=== PATIENT | male | born 1980 | race Caucasian/White ===

== ENCOUNTER 2017-10-11 14:51 | Emergency (ER) | payer MEDICAID, SELFPAY ==
[2017-10-11 14:52] VITALS: BP 150/105; PULSE 96; RESP 18; TEMP 36.6; O2SAT 100; BMI 23.7
--- NOTE | 2017-10-11 15:01 | EKG12_ITS ---
Test Reason : MHC Blood Pressure : / mmHG Vent. Rate : 090 BPM Atrial Rate : 090 BPM P-R Int : 140 ms QRS Dur : 084 ms QT Int : 344 ms P-R-T Axes : 065 071 060 degrees QTc Int : 420 ms Normal sinus rhythm Nonspecific T wave abnormality Abnormal ECG Confirmed by VALORIE WINN, GURWINDER ([id number]), food expeditor ERNESTO LOPEZ ([id number]) on 10/14/2017 11:24:20 AM Referred By: JUANIS Confirmed By:GURWINDER EUGENE MD
--- NOTE | 2017-10-11 15:25 | ED.VISSUMM ---
- ER Visit Summary Date of Service: 10/11/17 Chief Complaint: Depression History of Present Illness: The patient is a 37 M who is brought in by the physician office secretary's department. The patient was noted yesterday to be sitting on a metal chair in the pool of water holding electrical cord. There is his optical engineering manager who found him and he attempted to take him to the hospital but this patient jumped out of the vehicle and fled. He tells me that he went and bought meth. When he woke up this morning he realized that his life was a mass. He states that this is not the type of way he wants his children to see him. He has a 4-year-old biologic son and a 10-year-old stepson. He is in a six-year relationship. He states that he has used methamphetamines off and on for years. He will take months off and something will happen and he will end up using. 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 He states he last saw counselor 6-7 years ago when he was living in [place]. Patient was found this morning by a deputy general counsel and he cooperated with the deputy and came to the emergency department. However once here he has been resistant to psychiatric protocol. Eventually he agreed after discussion with the deputy. He states he does not wish to harm himself. Physical Examination: Afebrile vital signs are stable Gen: Well-nourished well-developed Head: Normocephalic atraumatic Eyes: Perrl EOMI ENT: TMs clear no rhinorrhea moist mucous membranes Neck: Supple no lymphadenopathy no JVD nontender CVS: Regular rate rhythm no murmurs normal S1-S2 Respiratory: No distress clear to auscultation bilaterally chest nontender Abdomen: Soft nontender nondistended normal bowel sounds no masses Back: Nontender Extremity: Nontender no edema Skin: Normal color no rash Neuro: alert orientated ?3 CN II-XII intact normal strength sensation reflexes gait cerebellar Psych: Patient is tearful. He speaks quietly. He speaks often in vague in his answers. He makes very little eye contact. Test Results: [] Emergency Department Course and Treatment: [] Impression: 1. Depression This note was generated with [employer] software. It may contain incorrect words, spelling, and punctuation that were not noted in review of the chart prior to signing ED Disposition - Plan for ED Patient: Chief Complaint: Suicidal Referrals: Care Physician,No Primary [Primary Care Provider] -
--- NOTE | 2017-10-11 15:35 | ED.DCSUM_ITS ---
- ER Visit Summary Date of Service: 10/11/17 Chief Complaint: Depression History of Present Illness: The patient is a 37 M who is brought in by the drywall mechanic's department. The patient was noted yesterday to be sitting on a metal chair in the pool of water holding electrical cord. There is his port cdl a driver who found him and he attempted to take him to the hospital but this patient jumped out of the vehicle and fled. He tells me that he went and bought meth. When he woke up this morning he realized that his life was a mass. He states that this is not the type of way he wants his children to see him. He has a 4-year- old biologic son and a 10-year-old stepson. He is in a six-year relationship. He states that he has used methamphetamines off and on for years. He will take months off and something will happen and he will end up using. 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 He states he last saw counselor 6-7 years ago when he was living in [place]. Patient was found this morning by a dipper fish and he cooperated with the deputy and came to the emergency department. However once here he has been resistant to psychiatric protocol. Eventually he agreed after discussion with the deputy. He states he does not wish to harm himself. Physical Examination: Afebrile vital signs are stable Gen: Well-nourished well-developed Head: Normocephalic atraumatic Eyes: Perrl EOMI ENT: TMs clear no rhinorrhea moist mucous membranes Neck: Supple no lymphadenopathy no JVD nontender CVS: Regular rate rhythm no murmurs normal S1-S2 Respiratory: No distress clear to auscultation bilaterally chest nontender Abdomen: Soft nontender nondistended normal bowel sounds no masses Back: Nontender Extremity: Nontender no edema Skin: Normal color no rash Neuro: alert orientated ?3 CN II-XII intact normal strength sensation reflexes gait cerebellar Psych: Patient is tearful. He speaks quietly. He speaks often in vague in his answers. He makes very little eye contact. Test Results: [] Emergency Department Course and Treatment: [] Impression: 1. Depression This note was generated with [employer] software. It may contain incorrect words, spelling, and punctuation that were not noted in review of the chart prior to signing ED Disposition - Plan for ED Patient: Chief Complaint: Suicidal Referrals: Care Physician,No Primary [Primary Care Provider] -
[2017-10-11 15:46] LABS: Absolute Lymphocyte Count 1.63 X10^3/ul (0.83-4.51); Absolute Neutrophil Count 5.5 X10^3/uL (2.0-7.7); Basophil# 0.02 X10^3/uL; Basophil% 0.3 % (0-1); Eosinophil# 0.05 X10^3/uL; Eosinophils% 0.6 % (0-5); Hematocrit 45.1 % (40-54); Hemoglobin 14.6 g/dl (13.0-16.5); Lymphocyte # 1.63 X10^3/ul (4.0); Lymphocyte % 21.1 % (19-41); Mean Corp Hgb Conc 32.4 g/gl (32-36); Mean Corpuscular Hgb 28.6 pg (27.0-32.0); Mean Corpuscular Volume 88.4 fL (80-94); Mean Platelet Vol. 9.4 fl (6.2-12.0); Monocyte# 0.52 X10^3/uL; Monocyte% 6.7 % (0-10); Neutrophil # 5.51 X10^3/uL (2.7-7.7); Neutrophil % 71.2 % (47-70); Platelet Count 239 K/mm3 (150-450); RBC Distribution Width CV 13.3 % (11.6-14.6); RBC Distribution Width SD 43.2 fl (35.1-43.9); White Blood Count 7.7 K/mm3 (4.4-11.0)
[2017-10-11 15:48] LABS: POSITIVE COUNT NO; POSITIVE DIFFERENTIAL NO; POSITIVE MORPHOLOGY NO
--- NOTE | 2017-10-11 16:25 | CHAPLAIN ---
Type of Pastoral Visit _x__ Initial Visit ___ Follow-up Visit ___ On-call Visit ___ General Patient Visit ___ Spiritual Assessment ___ Family Conference ___ Bereavement ___ Rapid Response ___ Code Blue _x__ Other (describe below) Pastoral Care Referral From _x__ Patient ___ Family _x__ Nurse ___ Physician ___ General Accountant ___ Nuclear Physician ___ Other (describe below) Sacrament/Intervention _x__ Active listening ___ Anointing ___ Congregational ___ Bereavement ___ Communion _x__ Amy exploration ___ _x__ Life review _x__ Prayer ___ Reconciliation ___ Sacrament of Sick _x__ Supportive presence ___ Wedding ___ Other (describe below) Pastoral Comments RN asked me to see this patient; pt had suicide plans yesterday but did not carry them out; offered presence and listening ear to pt; pt was tearful; he said that I don't want to kill myself but he explained that he was thrown out of the house by long time partner and I've lost my family; pt says all I want is my family back; patient takes blame for his situation; pt says he would do anything for my kids; pt describes his need to put his family first and not his work and I need to get them out of the trailer park; pt says that he has given up on God although I still believe He exists and I don't have hope anymore although he admitted that he hopes he can get his family back and things can get better; pt says that he has a place to stay and that he has a friend who is supportive; pt says that he has been in contact with his Significant Other; pt accepted a prayer; pt was calm at conclusion of this encounter; pt was actively texting on his phone throughout this visit
[2017-10-11 16:31] LABS: Alcohol, Blood (Medical)-Serum < 3.0 mg/dL
[2017-10-11 16:32] LABS: AST(SGOT) 13 U/L (15-37); Alanine Aminotransfer ALT/SGPT 27 U/L (16-61); Albumin, Serum 4.2 g/dL (3.2-5.0); Alkaline Phosphatase 119 U/L (45-117); Bilirubin, Direct 0.11 mg/dL (0.00-0.30); Globulin 3.5 g/dL (2.2-4.2); Protein, Total 7.7 g/dL (6.4-8.2)
[2017-10-11 16:34] LABS: Anion Gap 7 (5-15); BUN 14 mg/dL (7-18); BUN/Creat Ratio 12.5 RATIO (10-20); Calcium,Total 9.2 mg/dL (8.5-10.1); Chloride 103 mmol/L (98-107); Creatinine, Serum 1.12 mg/dL (0.70-1.30); EST Glomerular Filtration Rate 78 mL/min (>60); Est Glom Filt Rate - Afr Amer 94 mL/min (>60); Estimated Creatinine Clearance 100.07 ml/min; Glucose 95 mg/dL (70-110); Potassium 4.1 mmol/L (3.5-5.1); Sodium Level 139 mmol/L (136-145); Thyroid Stim Hormone (TSH) 1.09 uIU/mL (0.358-3.74)
[2017-10-11 16:35] LABS: Bacteria 0 SEEN /hpf (None Seen); Red Blood Cells-Urine 0 SEEN /hpf (0-5); Squamous Epithelial Cells - UA 0 SEEN /hpf (0-5); White Blood Cells 0 SEEN /hpf (0-5)
[2017-10-11 16:48] LABS: Color, Urine Yellow (Yellow); Glucose, Dipstick Normal (Normal); Ketone-Dipstick Negative (Negative); Leukocyte Esterase-Dipstick Negative /ul (Negative); Nitrite-Dipstick Negative (Negative); Occult Blood-Urine 10 /ul (Negative); Protein-Dipstick Negative (Negative); Urine Bilirubin Dipstick Negative (Negative); Urine Clarity Clear (Clear); Urine Urobilinogen Normal (Normal); Urine pH 6.5 (5.0 - 8.0)
[2017-10-11 16:55] LABS: Mucous, Urine 1+ /hpf (<or=2+)
[2017-10-11 17:11] VITALS: RESP 18
[2017-10-11 17:16] LABS: Amphetamine Urine VISTA POSITIVE (<1000 ng/mL); Barbiturate Urine VISTA NEGATIVE (< 200 ng/mL); Benzodiazepine Urine VISTA NEGATIVE (< 200 ng/mL); Cocaine Urine VISTA NEGATIVE (< 300 ng/mL); Ecstacy Urine VISTA POSITIVE (< 500 ng/mL); Methadone Urine VISTA NEGATIVE (< 300 ng/mL); PCP Urine VISTA NEGATIVE (< 25 ng/mL); THC Urine VISTA POSITIVE (< 50 ng/mL); Vista UDS pH Range 6
--- NOTE | 2017-10-11 18:06 | ED.RN ---
PER RAYMOND WITH CRISIS; YURI BE IN TO EVALUATE THE PT
[2017-10-11 21:30] VITALS: BP 144/109
[2017-10-11 22:28] VITALS: RESP 18
[2017-10-11 23:10] VITALS: RESP 18
[2017-10-12] VITALS (9 sets, daily range): BP systolic 130–143; BP diastolic 78–100; PULSE 16–99; RESP 12–18; TEMP 36.4; O2SAT 95–99
--- NOTE | 2017-10-12 07:18 | NURSING ---
CALLED [facility] FOR TRANSPORT, WILL BE AFTER NOON. CALLED [facility] FOR [facility]SP[facility], REFUSED FOR NOW. ASKED TO CALL BACK LATER
--- NOTE | 2017-10-12 07:46 | NURSING ---
CALLED [facility]. REFUSED BASED ON WEATHER
--- NOTE | 2017-10-12 09:27 | NURSING ---
[facility] CALLED AND SAID THEY COULD BE HERE IN 45 MIN FOR TRANSPORT
[2017-10-12] MEDS: Ibuprofen 600 MG Tablet PO (10:44)
== END 2017-10-12 10:50 ==
PROVIDERS: Emergency Provider Emergency Medicine
DX: F32.9 Major depressive disorder, single episode, unspecified (principal); R45.851 Suicidal ideations; Z72.0 Tobacco use
CPT/HCPCS: 80048; 80076; 80307; 80320; 81001; 84443; 84484; 85025; 93005; 99284; G0480

== ENCOUNTER 2018-02-02 16:03 | Emergency (ER) | payer MEDICAID, SELFPAY ==
[2018-02-02 16:04] VITALS: BP 153/110; PULSE 110; RESP 17; TEMP 37.1; O2SAT 97; BMI 22.4
--- NOTE | 2018-02-02 16:20 | RAD_ITS ---
STUDY: X-RAY - RIGHT FOOT CLINICAL: Male, 37 years old. Right foot and ankle pain for 2 days. TECHNIQUE: 3 view(s) of the foot. COMPARISON: None. FINDINGS: Normal talus, calcaneus, and tarsal bones. Normal visualized subtalar, talonavicular, calcaneocuboid, tarsal and tarsometatarsal articulations. Normal metatarsi. Normal metatarsophalangeal joint of the great toe. Normal tibial and fibular sesamoid bones. Normal interphalangeal joint of the great toe. Normal phalanges of the great toe. Normal second through fifth metatarsophalangeal joints. Normal interphalangeal joints and phalanges of the lesser toes. The soft tissue structures are unremarkable. RAD/Foot min 3 Views IMPRESSION: No significant abnormality identified. Electronically Signed: Hermelindo Mccray MD at 16:37 EDT , Service support ,
--- NOTE | 2018-02-02 16:41 | ED.VISSUMM ---
- ER Visit Summary Date of Service: 02/02/18 Chief Complaint: Right heel pain History of Present Illness: The patient is a 37 M who cannot remember his primary care physician's name. He reports that his right heel pain began approximately 4 days ago. He denies any trauma. He describes it as a sharp pain is 10 out of 10 severity. Is worsened by walking or touching it. Is not taking anything for pain. Physical Examination: Vitals: Stable. Afebrile. General: Well-nourished and well-developed. Head: Normocephalic atraumatic. Neck: Supple, no lymphadenopathy. No JVD. Nontender. Cardiovascular: Regular rate and rhythm. No murmurs. Respiratory: No respiratory distress. Clear to auscultation bilaterally. Abdominal: Soft, nontender, nondistended, normal bowel sounds. No guarding, rebound, or peritoneal signs. Back: Nontender. Extremities: Pain is localized to the insertion of his right Achilles tendon. There is minimal erythema and soft tissue swelling. However, this area is moderately tender to palpation. He has normal Bhagat test. 2+ dorsalis pedis pulse. Skin: Normal color, no rash. Neurologic: Alert and oriented ?3. Cranial nerves II through XII are intact. Normal strength and sensation. Psych: Normal affect. Test Results: X-ray is negative Emergency Department Course and Treatment: Patient was treated with naproxen. Treatment Plan: Patient will be discharged on naproxen. Instructed with Dr. Velázquez in 1 week if not improving. Return to the emergency department for any worsening symptoms. Disposition: To home in improved and stable condition. Impression: 1. Right Achilles tendinitis. This note was generated with [employer] dictation software. It may contain incorrect words, spelling, and punctuation that were not noted in review of the chart prior to signing ED Disposition - Plan for ED Patient: Disposition: Home or Assisted Living Chief Complaint: Lower Extremity Injury Instructions: Treating Tendonitis of the Foot Referrals: Lenin Velázquez DPM [STAFF PHYSICIAN] - 1 Week if not improving
[2018-02-02] MEDS: Naproxen 500 MG Tablet PO (17:10)
[2018-02-02 17:11] VITALS: PULSE 104; RESP 17; O2SAT 96
== END 2018-02-02 17:15 | disposition home or self-care (01) ==
LOC: ED 16:34
PROVIDERS: Emergency Provider Emergency Medicine
DX: M76.61 Achilles tendinitis, right leg (principal); F17.200 Nicotine dependence, unspecified, uncomplicated; F20.9 Schizophrenia, unspecified; F60.3 Borderline personality disorder
CPT/HCPCS: 73630; 99283

== ENCOUNTER 2018-02-03 00:29 | Emergency (ER) | payer MEDICAID, SELFPAY ==
[2018-02-03 00:30] VITALS: BP 195/168; PULSE 92; RESP 17; TEMP 36.6; O2SAT 97; BMI 24.3
[2018-02-03 00:32] VITALS: BP 147/99
--- NOTE | 2018-02-03 00:44 | ED.VISSUMM ---
- ER Visit Summary Date of Service: 02/03/18 Chief Complaint: Problem with head History of Present Illness: The patient is a 37 M presenting with auditory hallucinations. Patient states he has been out of his schizophrenia medication for the past month. He states the auditory hallucinations have worsened over the last several days. He states he is currently trying to get his children back and is depressed and is having difficulty coping. He states he feels like there is a tornado in his head. He denies visual hallucinations. Denies suicidal ideation. Denies headache or other symptoms. Physical Examination: Vitals are stable. Patient is afebrile. Alert no acute distress. HEENT exam is unremarkable. Neck is supple. Lungs are clear and equal bilaterally. Heart is regular rate and rhythm. Abdomen is soft nontender nondistended. Skin is warm and dry. No focal neurologic deficit. Auditory hallucinations, denies suicidal ideation Remainder of exam is unremarkable. Emergency Department Course and Treatment: CBC, chemistries unremarkable other than creatinine 1.37. Alcohol is negative. Tox is negative. Patient was seen by the counseling center in the emergency department. They feel he is safe for discharge home. He will follow closely with the counselor and they will work on getting him established with a psychiatrist. He will be given a two-week course of his medication that he has run out of, Invega. Advised to follow-up with the counseling center. Advised return to ED for worsening complaints. Disposition: Discharge home Impression: Auditory hallucinations, history of schizophrenia This note was generated with [employer] dictation software. It may contain incorrect words, spelling, and punctuation that were not noted in review of the chart prior to signing ED Disposition - Plan for ED Patient: Chief Complaint: Mental Health Instructions: ED Schizophrenia General Prescriptions: Paliperidone [Invega] 9 mg PO DAILY #14 tablet Referrals: Counseling,Center [GROUP OF PHYSICIANS] - Care Physician,No Primary [Primary Care Provider] -
[2018-02-03 01:07] LABS: Vista UDS pH Range 7
[2018-02-03 01:11] LABS: Absolute Lymphocyte Count 2.78 X10^3/ul (0.83-4.51); Absolute Neutrophil Count 3.9 X10^3/uL (2.0-7.7); Basophil# 0.03 X10^3/uL; Basophil% 0.4 % (0-1); Eosinophil# 0.16 X10^3/uL; Eosinophils% 2.1 % (0-5); Hematocrit 40.4 % (40-54); Hemoglobin 13.4 g/dl (13.0-16.5); Lymphocyte # 2.78 X10^3/ul (4.0); Lymphocyte % 36.2 % (19-41); Mean Corp Hgb Conc 33.2 g/gl (32-36); Mean Corpuscular Hgb 29.1 pg (27.0-32.0); Mean Corpuscular Volume 87.6 fL (80-94); Mean Platelet Vol. 9.7 fl (6.2-12.0); Monocyte# 0.82 X10^3/uL; Monocyte% 10.7 % (0-10); Neutrophil # 3.89 X10^3/uL (2.7-7.7); Neutrophil % 50.5 % (47-70); Platelet Count 231 K/mm3 (150-450); RBC Distribution Width CV 14.1 % (11.6-14.6); RBC Distribution Width SD 45.1 fl (35.1-43.9); Red Blood Count 4.61 M/mm3 (4.6-6.2); White Blood Count 7.7 K/mm3 (4.4-11.0)
[2018-02-03 01:12] LABS: Anion Gap 4 (5-15); BUN 24 mg/dL (7-18); BUN/Creat Ratio 17.5 RATIO (10-20); Calcium,Total 8.8 mg/dL (8.5-10.1); Chloride 104 mmol/L (98-107); Creatinine, Serum 1.37 mg/dL (0.70-1.30); EST Glomerular Filtration Rate 61 mL/min (>60); Est Glom Filt Rate - Afr Amer 74 mL/min (>60); Estimated Creatinine Clearance 81.81 ml/min; Glucose 104 mg/dL (74-106); Sodium Level 139 mmol/L (136-145)
[2018-02-03 01:17] LABS: POSITIVE COUNT NO; POSITIVE DIFFERENTIAL NO; POSITIVE MORPHOLOGY NO
[2018-02-03 01:19] LABS: Amphetamine Urine VISTA NEGATIVE (<1000 ng/mL); Barbiturate Urine VISTA NEGATIVE (< 200 ng/mL); Benzodiazepine Urine VISTA NEGATIVE (< 200 ng/mL); Cocaine Urine VISTA NEGATIVE (< 300 ng/mL); Ecstacy Urine VISTA NEGATIVE (< 500 ng/mL); Methadone Urine VISTA NEGATIVE (< 300 ng/mL); PCP Urine VISTA NEGATIVE (< 25 ng/mL); THC Urine VISTA NEGATIVE (< 50 ng/mL)
[2018-02-03 01:24] LABS: Alcohol, Blood (Medical)-Serum < 3.0 mg/dL
--- NOTE | 2018-02-03 02:03 | ED.DEP ---
ED Disposition - Plan for ED Patient: Chief Complaint: Mental Health Instructions: ED Schizophrenia General Prescriptions: Paliperidone [Invega] 9 mg PO DAILY #14 tablet Referrals: Care Physician,No Primary [Primary Care Provider] - Counseling,Center [GROUP OF PHYSICIANS] -
[2018-02-03 02:35] VITALS: PULSE 76; RESP 16; O2SAT 98
== END 2018-02-03 02:36 | disposition home or self-care (01) ==
LOC: ED 01:00
PROVIDERS: Emergency Provider Emergency Medicine
DX: R44.0 Auditory hallucinations (principal); F32.9 Major depressive disorder, single episode, unspecified; F41.9 Anxiety disorder, unspecified; I10 Essential (primary) hypertension; Z72.0 Tobacco use
CPT/HCPCS: 36415; 80048; 80307; 80320; 85025; 99284; G0480

== ENCOUNTER 2019-07-03 19:00 | Emergency (ER) | payer MEDICAID, SELFPAY ==
[2018-11-14 10:09] VITALS: BMI 22.3
[2019-07-03 19:01] VITALS: BP 158/99; PULSE 115; RESP 20; TEMP 36.9; O2SAT 99; BMI 25.0
--- NOTE | 2019-07-03 19:05 | RAD_ITS ---
STUDY: X-RAY - LEFT HAND REASON FOR EXAM: Male, 38 years old. Pain, stiffness TECHNIQUE: 3 view(s) of the hand. COMPARISON: None. FINDINGS: Normal radiocarpal articulation. Normal distal radioulnar joint. Normal visualized carpal bones. Normal carpal articulations Normal carpometacarpal articulation of the thumb. Normal second through fifth carpometacarpal joints. Normal metacarpi. Normal metacarpophalangeal joint of the thumb. Normal interphalangeal joint of the thumb. Normal proximal and distal phalanges of the thumb. Normal metacarpophalangeal joints of the second through fifth fingers. Normal proximal and distal interphalangeal joints of the second through fifth fingers. Normal phalanges of the second through fifth fingers. The soft tissue structures are unremarkable. RAD/Hand Min 3 Views IMPRESSION: Normal x-ray examination of the hand. Electronically Signed: Reza Lee MD at 19:27 EDT , Service support ,
--- NOTE | 2019-07-03 19:05 | RAD_ITS ---
STUDY: X-RAY - LEFT RADIUS AND ULNA REASON FOR EXAM: Male, 38 years old. Pain after fall TECHNIQUE: 2 view(s) of the forearm. COMPARISON: None. FINDINGS: There is no demonstrated soft tissue swelling. Normal visualized radius. Normal visualized ulna. RAD/Forearm 2 Views IMPRESSION: Normal x-ray examination of the radius and ulna. Electronically Signed: Reza Lee MD at 19:28 EDT , Service support ,
[2019-07-03 19:52] VITALS: RESP 16
--- NOTE | 2019-07-03 19:59 | ED.DCSUM_ITS ---
History of Present Illness Chief Complaint: Fall Informant: Patient Onset: Today Current Severity: Moderate Maximum Severity: Moderate Narrative: Patient presents after falling approximately 13 feet from a ladder. He states the ladder gave out and he fell to the ground. He landed on his left side. Is complaining of pain to his left forearm and hand. He is abrasions over his shins. He denies striking his head or loss of consciousness. He denies neck or back pain. He is also complaining of a rash that he had on his face for the past 2 days. He states he had a small pimple-like lesion just beneath the lower lip that he popped. He now has redness and burning sensation over his chin. Past Medical History - Allergies and Home Meds Allergies/Adverse Reactions: Allergies Penicillins Allergy (Verified 07/03/19 19:01) Hives propoxyphene napsylate [From Darvocet-N 100] Allergy (Verified 07/03/19 19:01) Unknown Sulfa (Sulfonamide Antibiotics) Adverse Reaction (Verified 07/03/19 19:01) Upset Stomach Primary Care Physician: Care Physician,No Primary [Primary Care Provider] - Prior records reviewed: Yes Past Medical History: - - Reviewed Surgical History: no surgical history Smoking Status: Current every day smoker Review of Systems General: Denies: Chills, Fever Eyes: Denies: Visual changes - bilaterally ENT: Denies: Bilateral ear pain, Sore throat Cardiovascular: Denies: Chest pain Respiratory: Denies: Dyspnea, Cough Gastrointestinal: Denies: Abdominal pain, Nausea, Vomiting Musculoskeletal: Reports: Extremity Pain. Denies: Neck pain, Back pain Skin: Reports: Abrasions Neurological: Denies: Parasthesia Hematologic: Denies: Easy bruising Physical Exam Vital Signs/Narrative: Vital Signs Temp Pulse Resp BP Pulse Ox 07/03/19 19:52 16 07/03/19 19:01 98.4 F 115 H 20 H 158/99 H 99 Inital Vital Signs reviewed: Yes General: Well nourished, Well developed Head: Normocephalic ENT: Moist mucous membranes Neck: Supple Cardiovascular: Regular rate, Regular rhythm Respiratory: No distress, CTA bilaterally, Chest nontender Abdomen: Soft, Nontender Extremities: Tenderness - Tenderness palpation over the forearm, wrist, and hand on the left. No evidence of compartment syndrome. He can flex and extend at the wrist. Multiple superficial abrasions are noted. Lower extremity examination reveals linear abrasions over his shins. No bony tenderness. He is able to ambulate without difficulty. Skin: - - Abrasions as noted above. Patient also has evidence of cellulitis over his chin. No focal abscess. Neurological: Alert, Oriented x3 Psychological: Normal affect Diagnostic/Tx/Re-eval Impressions Forearm X-Ray 07/03/19 19:05 IMPRESSION: Normal x-ray examination of the radius and ulna. Electronically Signed: Reza Lee MD at 19:28 EDT , Service support , Hand X-Ray 07/03/19 19:05 IMPRESSION: Normal x-ray examination of the hand. Electronically Signed: Reza Lee MD at 19:27 EDT , Service support , 07/03/19 19:05 Hand Min 3 Views [RAD] Stat Xray Forearm [Forearm 2 Views] [RAD] Stat - Medical Decision Making X-ray results are discussed with the patient. He will be given a Velcro wrist s plint for his left arm. He reports his tetanus is up-to-date. He is given naproxen to help with pain. He will be treated with doxycycline for his cellulitis. He will also be given Bactroban ointment. ED Disposition - Plan for ED Patient: Disposition: Home or Assisted Living Diagnosis: Fall, Left wrist sprain, Cellulitis Instructions: FALL, Mechanical, Wrist Sprain, CELLULITIS, Facial Prescriptions: Doxycycline 100 mg PO BID #20 capsule Naproxen [Naprosyn] 500 mg PO BID PRN PRN #20 tablet PRN Reason: Pain Score 1-10/10 Referrals: Nai Storm DO [STAFF PHYSICIAN] - As Needed
[2019-07-03] MEDS: Naproxen 500 MG Tablet PO (20:18)
[2019-07-03] MEDS: Doxycycline 100 MG CAPSULE PO (20:18)
[2019-07-03] MEDS: Mupirocin Ointment 22gm Tube 1 APPLIC TOPICAL (20:18)
[2019-07-03 20:19] VITALS: RESP 18
== END 2019-07-03 20:20 | disposition home or self-care (01) ==
LOC: ED 20:08
PROVIDERS: Emergency Provider Emergency Medicine
DX: S63.502A Unspecified sprain of left wrist, initial encounter (principal); W11.XXXA Fall on and from ladder, initial encounter; Y93.9 Activity, unspecified; Y92.9 Unspecified place or not applicable; Y99.9 Unspecified external cause status; L03.211 Cellulitis of face
CPT/HCPCS: 73090; 73130; 99284

== ENCOUNTER 2019-08-14 18:29 | Emergency (ER) | payer MEDICAID, SELFPAY ==
[2019-08-14] VITALS (7 sets, daily range): BP systolic 140–162; BP diastolic 107–111; PULSE 97–117; RESP 18–21; TEMP 36.1–36.6; O2SAT 98–100; BMI 24.7
--- NOTE | 2019-08-14 18:36 | ED.RN ---
RN CALLED FOR EKG, PULLED OLD EKGS FOR
--- NOTE | 2019-08-14 19:02 | EKG12_ITS ---
Test Reason : CP Blood Pressure : / mmHG Vent. Rate : 109 BPM Atrial Rate : 109 BPM P-R Int : 136 ms QRS Dur : 086 ms QT Int : 320 ms P-R-T Axes : 045 060 045 degrees QTc Int : 430 ms Sinus tachycardia Otherwise normal ECG Confirmed by VALORIE WINN, GURWINDER ([id number]), scientific editor BLAS MILLAN ([id number]) on 08/16/2019 12:59:16 PM Referred By: GERRI Confirmed By:GURWINDER EUGENE MD
--- NOTE | 2019-08-14 19:04 | ED.VIS.CHEST ---
History of Present Illness Chief Complaint: Chest Pain Informant: Patient Onset: Hours - 1-2 Activity at onset: - - standing at work, working the drive thru at [employer] Timing: Continuous Quality: Sharp, Stabbing - w/ mild discomfort in left forearm that is now resolved Location: Left Chest Current Severity: Mild Maximum Severity: Severe Worsened By: Breathing - earlier, when it was severe Relieved By: Nothing Associated Symptoms: Dyspnea, Cough - recent, 1-2 wks, mild, [employer], Lightheadedness - near-syncopal, Palpitations. Negative for: Nausea, Vomiting, Diaphoresis, Fever Narrative: Patient states he was standing at work suddenly had onset of the symptoms lateral left chest, it was pleuritic at the time, he states symptoms are much more mild now but he did feel lightheaded and near syncopal. Denies any leg pain or swelling. No history of pulmonary embolus but he did have a superficial venous thrombosis in his right upper extremity due to a broken off IV catheter remotely, he states he was treated with blood thinners for that but has been off of them for a long time and never had any other issues in that area. He denies any recent travel, hospitalization, or surgery. He denies IV drug use. - Past Medical History (1) Schizophrenia Status: Chronic (2) Hypertension Status: Chronic (3) Migraine Status: Chronic Past Medical History - Allergies and Home Meds Allergies/Adverse Reactions: Allergies Penicillins Allergy (Verified 08/14/19 18:31) Hives propoxyphene napsylate [From Darvocet-N 100] Allergy (Verified 08/14/19 18:31) Unknown Sulfa (Sulfonamide Antibiotics) Adverse Reaction (Verified 08/14/19 18:31) Upset Stomach Primary Care Physician: Guanakito Carrizales MD [STAFF PHYSICIAN] - 5-7 Days Surgical History: - - Left shoulder 2014 Smoking Status: Current every day smoker Drugs: Marijuana, - - History of remote methamphetamine abuse, none recently. Review of Systems General: Denies: Chills, Fever, Sweats Eyes: Denies: Visual changes - bilaterally, Diplopia ENT: Denies: Rhinorrhea, Sore throat Cardiovascular: Reports: Chest pain, Palpitations, Heart racing Respiratory: Reports: Dyspnea, Cough. Denies: Sputum, Dyspnea on exertion Gastrointestinal: Denies: Abdominal pain, Nausea, Vomiting, Diarrhea, Melena, Hematochezia Genitourinary: Denies: Dysuria, Hematuria, Frequency Musculoskeletal: Reports: Extremity Pain - Mild, left upper extremity, resolved. Denies: Neck pain, Back pain, Swelling Skin: Denies: Rash, Wounds Neurological: Denies: Headache, Weakness, Numbness Psych: Reports: Anxiety Physical Exam Vital Signs/Narrative: Vital Signs Temp Pulse Resp BP Pulse Ox 08/14/19 18:32 97.9 F 08/14/19 18:30 97 F L 117 H 18 160/107 H 100 Inital Vital Signs reviewed: Yes General: Well nourished, Well developed, No Acute Distress - Well-appearing. Patient texting on cell phone. Head: Normocephalic, Atraumatic Eyes: Perrl, EOMI ENT: Moist mucous membranes, No rhinorrhea Neck: Supple, Nontender, No lymphadenopathy, No JVD Cardiovascular: Regular rate, Regular rhythm, No murmurs, Normal S1, Normal S2, Tachycardia Respiratory: No distress, CTA bilaterally, Chest nontender Abdomen: Soft, Nontender, Nondistended, Normal bowel sounds Back: Nontender, Normal Inspection. Negative for: CVA tenderness Extremities: Nontender, No edema. Negative for: Calf Tenderness - Active Homans bilaterally. Skin: Normal color, No rash, No Trauma Neurological: Alert, Oriented x3, Cranial nerves II-XII grossly intact, Normal Strength, Normal Sensation Psychological: Normal affect, Normal Mood Diagnostic/Tx/Re-eval Impressions Chest X-Ray 08/14/19 19:05 IMPRESSION: No acute cardiopulmonary disease or major interval change. Electronically Signed: Josias Paredes DO at 19:20 EST Tel [phone], Service support , 08/14/19 19:05 Chest 1 View (Portable) [RAD] Stat Laboratory Results 08/14/19 08/14/19 08/14/19 18:35 18:35 18:35 WBC 10.5 RBC 5.33 Hgb 15.2 Hct 45.4 MCV 85.2 MCH 28.5 MCHC 33.5 RDW Std Deviation 40.2 RDW Coeff of Bin 13.0 Plt Count 298 MPV 10.3 Immature Gran % (Auto) 0.300 Neut % (Auto) 62.1 Lymph % (Auto) 29.0 [place] % (Auto) 7.2 Eos % (Auto) 1.1 Baso % (Auto) 0.3 Absolute Neuts (auto) 6.5 Absolute Lymphs (auto) 3.04 Nucleated RBC % 0 D-Dimer Quant (PE/DVT) 0.37 Sodium 139 Potassium 3.5 Chloride 107 Carbon Dioxide 25.0 Anion Gap 7 BUN 20 H Creatinine 1.30 Estim Creat Clear Calc 84.51 Est GFR (MDRD) Af Amer 78 Est GFR (MDRD) Non-Af 65 BUN/Creatinine Ratio 15.4 Glucose 92 Calcium 9.6 Troponin I < 0.015 - Rhythm Strip Rhythm Strip: Sinus Tach Rate: 109 Ectopy: None - EKG Initial EKG Interpretation: No Acute Injury Pattern, Sinus Tachycardia, - - no [id number] pattern Prior: Unchanged Treatment: Toradol IV Repeat Eval: Significant improvement - Medical Decision Making Work-up is unremarkable including d-dimer which is negative. Patient is feeling much better after Toradol. Only residual symptom is mild left-sided discomfort without radiation, no dyspnea or palpitations. His heart rate is down to the 90s in sinus rhythm. Patient is asking if this could have been anxiety. He states he has had attacks that came out of nowhere like this before. Certainly that is in the differential. If he continues to have symptoms, he was referred to cardiology as a Holter monitor may be the next step and diagnostics if he continues to have palpitations. He understands this and is comfortable with discharge/this plan. ED Disposition - Plan for ED Patient: Disposition: Home or Assisted Living Diagnosis: Left-sided chest pain, Palpitations Instructions: CHEST PAIN, Uncertain Cause, Palpitations Referrals: Guanakito Carrizales MD [STAFF PHYSICIAN] - 5-7 Days
--- NOTE | 2019-08-14 19:05 | RAD_ITS ---
STUDY: X-RAY CHEST REASON FOR EXAM: Male, 39 years old. Chest pain. TECHNIQUE: Single AP portable view of the chest. COMPARISON: May 25, 2017. FINDINGS: The lungs are hypoexpanded but unchanged from the prior study. There is no new mass or infiltrate. There is no demonstrated pleural abnormality. Normal size heart. Normal mediastinum and jimbo. Normal visualized pulmonary arteries. Normal visualized aortic arch and descending thoracic aorta. Normal visualized thoracic spine. Normal visualized ribs, clavicles, and shoulders. There is no demonstrated abnormality of the visualized soft tissue structures of the upper abdomen. RAD/Chest 1 View (Portable) IMPRESSION: No acute cardiopulmonary disease or major interval change. Electronically Signed: Josias Paredes DO at 19:20 EST Tel [phone], Service support ,
[2019-08-14] MEDS: Ketorolac 15 MG/ML Vial IV (19:13)
[2019-08-14 20:02] LABS: Anion Gap 7 (5-15); BUN 20 mg/dL (7-18); BUN/Creat Ratio 15.4 RATIO (10-20); Calcium,Total 9.6 mg/dL (8.5-10.1); Chloride 107 mmol/L (98-107); EST Glomerular Filtration Rate 65 mL/min (>60); Est Glom Filt Rate - Afr Amer 78 mL/min (>60); Estimated Creatinine Clearance 84.51 ml/min; Glucose 92 mg/dL (74-106); Potassium 3.5 mmol/L (3.5-5.1); Sodium Level 139 mmol/L (136-145)
[2019-08-14 20:11] LABS: Absolute Lymphocyte Count 3.04 X10^3/uL (0.83-4.51); Absolute Neutrophil Count 6.5 X10^3/uL (2.0-7.7); Basophil# 0.03 X10^3/uL; Basophil% 0.3 % (0-1); Eosinophil# 0.11 X10^3/uL; Eosinophils% 1.1 % (0-5); Hematocrit 45.4 % (40-54); Hemoglobin 15.2 g/dL (13.0-16.5); Lymphocyte # 3.04 X10^3/ul (4.0); Mean Corp Hgb Conc 33.5 g/dL (32-36); Mean Corpuscular Hgb 28.5 pg (27.0-32.0); Mean Corpuscular Volume 85.2 fL (80-94); Mean Platelet Vol. 10.3 fl (6.2-12.0); Monocyte# 0.75 X10^3/uL; Monocyte% 7.2 % (0-10); NRBC Flagged by Analyzer 0 % (0-5); Neutrophil # 6.51 X10^3/uL (2.7-7.7); Neutrophil % 62.1 % (47-70); Platelet Count 298 K/mm3 (150-450); RBC Distribution Width SD 40.2 fl (35.1-43.9); Red Blood Count 5.33 M/mm3 (4.6-6.2); White Blood Count 10.5 K/mm3 (4.4-11.0)
[2019-08-14 20:31] LABS: D-Dimer Quantitative (DVT/PE) 0.37 FEU/ug/m (0.27-0.49)
== END 2019-08-14 21:48 | disposition home or self-care (01) ==
PROVIDERS: Emergency Provider Emergency Medicine
DX: R07.89 Other chest pain (principal); R00.2 Palpitations; R06.00 Dyspnea, unspecified; R05 Cough; F41.9 Anxiety disorder, unspecified; F20.9 Schizophrenia, unspecified; I10 Essential (primary) hypertension; Z86.718 Personal history of other venous thrombosis and embolism; Z79.899 Other long term (current) drug therapy; F17.200 Nicotine dependence, unspecified, uncomplicated
CPT/HCPCS: 71045; 80048; 84484; 85025; 85379; 93005; 96374; 96375; 99284; A4216

== ENCOUNTER 2019-09-07 17:28 | Emergency (ER) | payer MEDICAID, SELFPAY ==
[2019-08-14 18:30] VITALS: BMI 24.7
[2019-09-07 17:29] VITALS: BP 163/102; PULSE 127; RESP 16; TEMP 37.6; O2SAT 99; BMI 25.0
--- NOTE | 2019-09-07 18:23 | ED.DCSUM_ITS ---
History of Present Illness Chief Complaint: Med Refill Informant: Patient Narrative: Patient presents requesting refill of several medications. He states his been out of his meds for the past week and is feeling anxious and jittery. He tells me he has an appoint with the counseling center in 2-1/2 weeks. Patient has a history of schizophrenia, hypertension, migraine. He is requesting refills of Vistaril, lithium, Invega, trazodone, and lisinopril. - Past Medical History (1) Hypertension Status: Chronic (2) Migraine Status: Chronic (3) Schizophrenia Status: Chronic Past Medical History - Allergies and Home Meds Allergies/Adverse Reactions: Allergies Penicillins Allergy (Verified 09/07/19 17:28) Hives propoxyphene napsylate [From Darvocet-N 100] Allergy (Verified 09/07/19 17:28) Unknown Sulfa (Sulfonamide Antibiotics) Adverse Reaction (Verified 09/07/19 17:28) Upset Stomach Primary Care Physician: Care Physician,No Primary [Primary Care Provider] - Doctors: [facility] Prior records reviewed: Yes Surgical History: - - Left shoulder 2014 Smoking Status: Current every day smoker Review of Systems General: Denies: Chills, Fever Eyes: Denies: Visual changes - bilaterally ENT: Denies: Bilateral ear pain Cardiovascular: Denies: Chest pain Respiratory: Denies: Dyspnea Gastrointestinal: Denies: Abdominal pain, Nausea, Vomiting, Diarrhea Genitourinary: Denies: Dysuria Neurological: Denies: Headache Psych: Reports: Anxiety Allergy: Denies: Uticaria Physical Exam Vital Signs/Narrative: Vital Signs Temp Pulse Resp BP Pulse Ox 09/07/19 17:29 99.6 F H 127 H 16 163/102 H 99 Inital Vital Signs reviewed: Yes General: Well nourished, Well developed Head: Normocephalic ENT: Moist mucous membranes Neck: Supple Cardiovascular: Tachycardia Respiratory: No distress, CTA bilaterally Abdomen: Soft, Nontender Extremities: Nontender Skin: Normal color, No rash Neurological: Alert, Oriented x3 Psychological: Normal affect Diagnostic/Tx/Re-eval - Medical Decision Making I spoke with staff from the counseling center. They have not seen the patient the last 3 years. When looking at prescription history it looks like the lithium and Invega were previously written by the ER physician at [facility]. I advised him that I would write him a one-week course of his medications but he needs to call the counseling center tomorrow to be seen as soon as possible. Patient is in agreement with this plan. ED Disposition - Plan for ED Patient: Disposition: Home or Assisted Living Diagnosis: Medication refill Instructions: Med Refill Prescriptions: traZODone [Desyrel] 50 mg PO QHS #10 tab Transmission Status: Pending to [facility] Paliperidone [Invega] 9 mg PO DAILY #10 tab Transmission Status: Pending to [facility] Lisinopril 5 mg PO DAILY #10 tab Transmission Status: Pending to [facility] [place] Carbonate 300 mg PO DAILY #10 tablet.er Transmission Status: Pending to [facility] Hydroxyzine Pamoate [Vistaril] 50 mg PO BID PRN PRN #14 cap PRN Reason: Anxiety Transmission Status: Pending to [facility] Referrals: Counseling,Center [GROUP OF PHYSICIANS] - As soon as possible
[2019-09-07 18:31] VITALS: RESP 18
== END 2019-09-07 18:31 | disposition home or self-care (01) ==
PROVIDERS: Emergency Provider Emergency Medicine
DX: Z76.0 Encounter for issue of repeat prescription (principal); I10 Essential (primary) hypertension; G43.909 Migraine, unspecified, not intractable, without status migrainosus; F20.9 Schizophrenia, unspecified; Z79.899 Other long term (current) drug therapy; F17.200 Nicotine dependence, unspecified, uncomplicated
CPT/HCPCS: 99282